=== PATIENT | female | born 1985 | race Caucasian/White ===

== ENCOUNTER 2016-08-08 07:20 | Emergency (ER) | payer BC ==
--- NOTE | 2016-08-08 07:27 | UC ---
Throat Pain/Nasal Emmett HPI - HPI Summary HPI Summary: 30 year old female presents with sore throat . Worsening over the last 4-5 days. No fever. Concerned for strep. 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 - History of Current Complaint Stated Complaint: THROAT Time Seen by Provider: 08/08/16 07:24 Hx Obtained From: Patient Hx Last Menstrual Period: 11/12/14 ?: No Onset/Duration: Sudden Onset Associated Signs & Symptoms: Positive: Negative - Allergies/Home Medications Allergies/Adverse Reactions: Allergies Allergy/AdvReac Type Severity Reaction Status Date / Time No Known Allergies Allergy Verified 08/08/16 07:52 PMH/Surg Hx/FS Hx/Imm Hx Previously Healthy: Yes - Surgical History Surgical History: None - Family History Known Family History: Positive: None - Social History Occupation: Employed Full-time Lives: With Family Alcohol Use: Occasionally Substance Use Type: None Smoking Status (MU): Heavy Every Day Tobacco Smoker Type: Cigarettes Amount Used/How Often: 1/2 PPD Length of Time of Smoking/Using Tobacco: 9 Years Have You Smoked in the Last Year: Yes Household Exposure Type: Cigarettes - Immunization History Most Recent Influenza Vaccination: Not the 2014/2015 Season Most Recent Tetanus Shot: Unknown Review of Systems ENT: Sore Throat All Other Systems Reviewed And Are Negative: Yes Physical Exam Triage Information Reviewed: Yes Appearance: Well-Appearing, No Pain Distress, Well-Nourished Vital Signs Reviewed: Yes Eye Exam: Normal ENT Exam: Normal ENT: Positive: Normal ENT inspection, Pharynx normal, Pharyngeal erythema, Nasal congestion, TMs normal. Negative: Tonsillar swelling, Tonsillar exudate Dental Exam: Normal Neck exam: Normal Neck: Positive: 1 Respiratory Exam: Normal Cardiovascular Exam: Normal Musculoskeletal Exam: Normal Neurological Exam: Normal Psychological Exam: Normal Skin Exam: Normal Throat Pain/Nasal Course/Dx - Differential Dx/Diagnosis Differential Diagnosis/HQI/PQRI: Peritonsillar Abscess, Pharyngitis, Tonsillitis , URI Provider Diagnoses: Viral Pharyngitis Discharge - Discharge Plan Condition: Good Disposition: HOME Patient Education Materials: Pharyngitis (ED) Referrals: Argelia Stanton MD [Primary Care Provider] - 3 Days Additional Instructions: You had a negative strep test in the office today. If your symptoms persist then please seek care from your PCP
[2016-08-08 08:01] VITALS: BP 127/88
== END 2016-08-08 09:00 | disposition home or self-care (01) ==
LOC: UCCORT 07:20
DX: J02.9 Acute pharyngitis, unspecified (principal); F17.210 Nicotine dependence, cigarettes, uncomplicated
CPT/HCPCS: 87651; 99211; G0463

== ENCOUNTER 2017-03-22 07:23 | Emergency (ER) | payer BC ==
[2017-03-22 07:40] VITALS: BP 119/82
--- NOTE | 2017-03-22 07:49 | UC ---
Throat Pain/Nasal Emmett HPI - HPI Summary HPI Summary: sore throat x 4 days nasal congestion , dry cough no fever, no chills, no body aches - History of Current Complaint Chief Complaint: UCRespiratory Stated Complaint: SORE THROAT COUGH RUNNY NOSE Time Seen by Provider: 03/22/17 07:44 Hx Obtained From: Patient Hx Last Menstrual Period: 11/12/14 Onset/Duration: Gradual Onset, Lasting Days - 4, Still Present Severity: Moderate Pain Intensity: 6 Cough: Nonproductive Associated Signs & Symptoms: Positive: Nasal Discharge. Negative: Dysphagia, FB Sensation, Drooling, Wheezing, Hoarseness, Sinus Discomfort, Fever, Vomiting , Rash - Allergies/Home Medications Allergies/Adverse Reactions: Allergies Allergy/AdvReac Type Severity Reaction Status Date / Time No Known Allergies Allergy Verified 03/22/17 07:34 Home Medications: Home Medications Cholecalciferol [Vitamin D] 200 unit PO DAILY 03/22/17 [History Confirmed ] Levothyroxine TAB* [Synthroid TAB*] 50 mcg PO DAILY 03/22/17 [History Confirmed 03/22/17] Vitamin Mixture [Vitamin C] 1 liq PO DAILY 03/22/17 [History Confirmed 03/22/17] PMH/Surg Hx/FS Hx/Imm Hx Previously Healthy: Yes Endocrine History: Hypothyroidism - Surgical History Surgical History: None - Family History Known Family History: Positive: None Negative: Diabetes - Social History Alcohol Use: None Substance Use Type: None Smoking Status (MU): Former Smoker Type: Cigarettes Amount Used/How Often: 1/2 PPD Length of Time of Smoking/Using Tobacco: 9 Years Have You Smoked in the Last Year: No When Did the Patient Quit Smoking/Using Tobacco: 2016 Household Exposure Type: Cigarettes - Immunization History Most Recent Influenza Vaccination: Not the 2014/2015 Season Most Recent Tetanus Shot: Unknown Review of Systems Constitutional: Negative Skin: Negative Eyes: Negative ENT: Sore Throat, Nasal Discharge Respiratory: Cough Cardiovascular: Negative Gastrointestinal: Negative Is Patient Immunocompromised?: No All Other Systems Reviewed And Are Negative: Yes Physical Exam Triage Information Reviewed: Yes Appearance: Well-Appearing, No Pain Distress, Well-Nourished Vital Signs: Initial Vital Signs Temp 99.1 F 03/22/17 07:35 Pulse 97 03/22/17 07:35 Resp 18 01/30/18 07:35 BP 119/82 03/22/17 07:35 Pulse Ox 100 03/22/17 07:35 Vital Signs Reviewed: Yes Eyes: Positive: Conjunctiva Clear ENT: Positive: Normal ENT inspection, Hearing grossly normal, Pharynx normal, Nasal congestion. Negative: Pharyngeal erythema Neck: Positive: Supple, Nontender, No Lymphadenopathy Respiratory: Positive: Chest non-tender, Lungs clear, Normal breath sounds Cardiovascular: Positive: RRR, No Murmur, Pulses Normal Abdominal Exam: Normal Skin Exam: Normal Throat Pain/Nasal Course/Dx - Differential Dx/Diagnosis Provider Diagnoses: viral pharyngitis Discharge - Discharge Plan Condition: Stable Disposition: HOME Patient Education Materials: Pharyngitis (ED) Referrals: Argelia Stanton MD [Primary Care Provider] - If Needed
== END 2017-03-22 07:52 | disposition home or self-care (01) ==
LOC: UCCORT 07:23
DX: J02.9 Acute pharyngitis, unspecified (principal); R09.81 Nasal congestion; E03.9 Hypothyroidism, unspecified; Z87.891 Personal history of nicotine dependence
CPT/HCPCS: 99211; G0463

== ENCOUNTER 2017-05-22 07:24 | Emergency (ER) | payer BC ==
--- OUTSIDE RECORDS SUMMARY | 2017-05-22 07:32 | XMS REPORT ---
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 Unavailable Payers Type Date Identification Numbers Payment Provider Subscriber Commercial Effective: Policy Number: BCBS Commercial Elodia Maldonado 2013 [id number] PayID: [id number] [address] [address] [place] [address] Problems Date Description Provider Status Onset: 10/21/2015 Mixed hyperlipidemia Argelia Stanton MD Active Onset: 02/08/2017 Hypothyroidism Argelia Stanton MD Active Family History Date Family Member(s) Problem(s) Comments Father Diabetes, Adult Father Hypertension Mother Good Health First Sister Hypothyroidism Half-sister with Mark's Social History Type Date Description Comments Education Higest level completed, Bachelor's In human services from [employer] Marital Status maiden name April Lives With Spouse Diet Healthy, Well Balanced 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 Hand Dominance RIGHT-handed Abuse No history of abuse Hobbies Gardening Blood Donor Patient is not a blood donor ETOH Use Occasionally consumes alcohol Smoking Patient is a former smoker Quit smoking 10/2015. Allergies, Adverse Reactions, Alerts Date Description Reaction Status Severity Comments 10/17/2015 NKDA active Medications Medication Date Status Form Strength Qnty SIG Indications Ordering Provider Levothyroxine 02/02/ Active Tablets 50mcg 90tabs 1 by Cierra Stanton mouth MD Argelia every day Vitamin D-3 02/01/ Active Capsules 1000Unit 90caps 2 by [place], 2017 mouth [place], every day DO / Active Tablets 14-0.4mg 1 by Unknown Complete 0000 mouth every day Sprintec 28 / Hx Tablets 0.25-35mg- 1 by Unknown 0000 - mcg mouth 02/01/ every day 2016 [facility] Immunizations CPT Code Status Date Vaccine Lot # [id number] Given 10/23/2002 Immunization Td 7 Yrs Or Older Vital Signs Date Vital Result Comment 04/28/2017 Weight 192.00 lb Heart Rate 76 /min BP Systolic 110 mmHg BP Diastolic 70 mmHg Respiratory Rate 18 /min Height 65 inches 5'5"04/28/17 BMI (Body Mass Index) 31.9 kg/m2 02/01/2017 Body Temperature 99.2 F Weight 170.00 lb Heart Rate 78 /min BP Systolic 124 mmHg BP Diastolic 70 mmHg Respiratory Rate 18 /min Height 65 inches 5'5" BMI (Body Mass Index) 28.3 kg/m2 10/17/2015 Weight 202.00 lb Heart Rate 74 /min BP Systolic 130 mmHg BP Diastolic 90 mmHg BP Systolic Recheck 130 mmHg BP Diastolic Recheck 80 mmHg Respiratory Rate 18 /min Height 65 inches 5'5" BMI (Body Mass Index) 33.6 kg/m2 05/20/2005 Body Temperature 97.9 F Weight 160.00 lb Heart Rate 88 /min BP Systolic 108 mmHg BP Diastolic 70 mmHg Respiratory Rate 20 /min 01/18/2005 Body Temperature 98.5 F Weight 156.00 lb Heart Rate 98 /min BP Systolic 118 mmHg BP Diastolic 70 mmHg Respiratory Rate 16 /min O2 % BldC Oximetry 97 % 07/02/2004 Body Temperature 98.3 F Weight 148.00 lb Heart Rate 72 /min BP Systolic 98 mmHg BP Diastolic 72 mmHg Respiratory Rate 16 /min O2 % BldC Oximetry 98 % Results Test Date Test Result H/L Range Note Laboratory test 03/16/2017 TSH 3.58 uIU/mL 0.35-4.94 finding Thyroid Auto 03/16/2017 Thyroid Peroxidase 242.00 IU/mL High 0.00-25.00 1 Antibodies Antibody Thyroglobulin AutoAB 97.00 IU/mL High 0.00-40.00 2 Laboratory test finding 03/16/2017 Acetaminophen <2.5 ug/mL Low (10.0- 30.0) 3 Free T4 0.96 ng/dL 0.70-1.48 Laboratory test finding 02/01/2017 TSH 8.89 uIU/mL High 0.35-4.94 4 Free T4 0.84 ng/dL 0.70-1.48 4 Thyroid Auto 02/01/2017 Thyroid Peroxidase 210.00 IU/mL High 0.00-25.00 4 , 5 Antibodies Antibody Thyroglobulin AutoAB 93.00 IU/mL High 0.00-40.00 4, 6 Laboratory test 02/01/2017 T3,Free 2.29 pg/mL 1.71-3.71 4 finding Laboratory test 01/28/2017 Thyroid Stim 9.12 uIU/mL High 0.30-4.20 7 finding Hormone Laboratory test 12/25/2016 Lead,Blood (Adult) <1 g/dL 0-19 8, 9 finding Varicella-Zoster Virus IgG Ab 835 index Immune >165 8, 10 Laboratory test finding 12/25/2016 Treponema Antibody White Negative Negative 8 Hepatitis B Surface Antigen Negative Negative 8, 11 Rubella IgG Antibody 7.91 index Immune >0.99 8, 12 Laboratory test 12/25/2016 HIV Screen 4TH Gen Non Reactive Non Reactive 8, 13 finding Reflex Type And Screen 12/25/2016 Patient Blood Type O POS 8 Antibody Screen Negative Negative 8 CBS W/Automated Diff 12/25/2016 White Blood Count 7.8 K/uL 3.1-10.7 8 Red Blood Count 3.93 M/uL 3.90-5.40 8 Hemoglobin 12.8 gm/dL 11.6-15.8 8 Hematocrit 36.7 % 36.0-46.1 8 Mean Cell Volume 93.4 fl 80.9-99.0 8 Mean Corpuscular HGB 32.6 pg 25.9-32.7 8 Mean Corpuscular HGB Conc 34.9 g/dL High 30.8-34.3 8 Platelet Count 248 K/uL 150-400 8 Red Cell Distri Width SD 39.8 fl 3-47 8 Red Cell Distri Width %CV 11.9 % 11.7-14.4 8 Mean Platelet Volume 10.0 fL 8.9-12.4 8 Neut% 64.0 % 40.4-72.8 8 Lymph % 24.5 % 20.0-42.0 8 [place] % 10.8 % 4.3-13.2 8 Eo% 0.6 % 0.0-6.6 8 Bas% 0.1 % 0.0-1.1 8 Neut# 4.99 K/uL 1.8-7.0 8 Lymph # 1.91 K/uL 1.0-4.0 8 [place] # 0.84 K/uL 0.3-0.9 8 Eos # 0.05 K/uL 0.0-0.5 8 Baso # 0.01 K/uL 0.0-0.1 8 Urine Culture 12/25/2016 Urine Culture URETHRAL ADRIAN 8 Quantity 10,000 - 50,000 <SEE NOTE> 8, 14 Drugs Of Abuse-Urine Screen 7 12/25/2016 Amphetamines (Urine) Negative 8 Barbiturates (Urine) Negative 8 Benzodiazepines (Urine) Negative 8 Cannabinoids (Urine) POSITIVE 8 Cocaine Metabolite (Urine) Negative 8 Methadone (Urine) Negative 8 Opiates (Urine) Negative 8 Urine Cutoffs * 8, 15 Ua RFX Micro & Culture II 12/25/2016 Urine Color YELLOW Yellow 8 Urine Clarity CLEAR Clear 8 Urine Glucose - Dipstick NEGATIVE mg/dL Negative 8 Urine Bilirubin - Dipstick NEGATIVE Negative 8 Urine Ketone NEGATIVE mg/dL Negative 8 Urine Specific [place] 1.010 1.010-1.030 8 Urine Blood NEGATIVE Negative 8 Urine PH 6.5 6.5-7.5 8 Urine Protein - Dipstick NEGATIVE mg/dL Negative 8 Urine Urobilinogen - Dipstick 0.2 E.U./dL 0.2-1.0 8 Urine Nitrite - Dipstick NEGATIVE Negative 8 Urine Leuk Esterase NEGATIVE Negative 8 Source: URINE, CLEAN CAT <SEE NOTE> 8, 16 Comprehensive Metabolic (CMP) 10/20/2015 Sodium 137 mmol/L 134-142 17 Potassium 4.6 mmol/L 3.5-5.2 17 Chloride 101 mmol/L 97-109 17 Carbon Dioxide 26 mmol/L 24-34 17 Glucose 82 mg/dL 70-105 17 BUN 12 mg/dL 6-26 17 Creatinine 0.7 mg/dL 0.5-1.4 17 Calcium 9.4 mg/dL 8.5-10.2 17 Total Protein 7.2 g/dL 6.0-8.0 17 Albumin 4.0 g/dL 3.6-4.9 17 Globulin 3.2 g/dL 2.0-3.5 17 A/G Ratio 1.3 Ratio 1.0-2.2 17 Total Bilirubin 0.4 mg/dL 0.1-1.3 17 Alkaline Phosphatase 91 U/L 24-140 17 Alt 14 U/L 3-42 17 Ast 15 U/L 8-42 17 Anion Gap 15 mmol/L High 6-14 17 Carol Egfr >60 >60 17, 18 Non Carol Egfr >60 >60 17, 19 CBC With Auto Diff 10/20/2015 WBC 6.0 K/uL 4.1-11.0 17 RBC 4.42 M/uL 4.00-5.40 17 Hemoglobin 13.9 gm/dL 12.0-16.0 17 Hematocrit 41.0 % 36.0-47.0 17 MCV 92.8 fL 80.0-97.0 17 MCH 31.5 pg 27.0-32.0 17 MCHC 34.0 g/dL 32.0-36.0 17 RDW 13.0 % 11.5-14.5 17 PLT Count 284 K/ul 140-400 17 Neutrophil 60.3 % 35.0-75.0 17 Lymphocyte 29.0 % 16.0-52.0 17 Monocyte 8.0 % 2.0-10.0 17 Eosinophil 2.0 % 0.0-5.0 17 Basophil 0.7 % 0.0-4.0 17 Abs Neutrophils 3.6 K/uL 2.1-8.0 17 Abs Lymphocytes 1.8 K/uL 0.8-5.5 17 Abs Monocytes 0.5 K/uL 0.1-1.0 17 Abs Eosinophils 0.1 K/uL 0.0-0.5 17 Abs Basophils 0.0 K/uL 0.0-0.3 17 Lipid 10/20/2015 Cholesterol 279 mg/dL High 50-199 17 Triglycerides 272 mg/dL High 30-200 17 HDL 50 mg/dL 35-85 17, 20 Chol/ HDL Ratio 5.6 ratio 3.7-5.6 17 VLDL 54 mg/dL High 2-29 17 LDL (Calc) 175 mg/dL High 20-99 17, 21 Laboratory test finding 10/20/2015 TSH 4.38 uIU/mL 0.35-4.94 17 Laboratory test finding 05/20/2005 Culture Throat Normal Throat FL 22 <See Note> Monoscreen (Heterophile) Negative Negative 1 Interpretation: 0-25 Negative 26-35 Equivocal >35 Positive 2 Interpretation: 0-40 Negative 41-60 Equivocal >60 Positive 3 Unless otherwise specified, testing performed by [facility] [address] [place] [id number] 4 Fastin hours 5 Interpretation: 0-25 Negative 26-35 Equivocal >35 Positive 6 Interpretation: 0-40 Negative 41-60 Equivocal >60 Positive 7 Z34.81 8 Z34.01 9 Environmental Exposure: WHO Recommendation <20 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 Performed at: [address] [id number] Industry Segment Specialist: Alicja Kaur MD, Phone: [phone] 11 Performed at: [address] [id number] Industry Segment Specialist: Alicja Kaur MD, Phone: [phone] Performed at: [address] [id number] Industry Segment Specialist: Glenn Canseco MD, Phone: [phone] 12 Non-immune <0.90 Equivocal 0.90 - 0.99 Immune >0.99 13 Performed at: [address] [id number] Industry Segment Specialist: Alicja Kaur MD, Phone: [phone] 14 10,000 - 50,000 CFU/mL 15 URINE SPECIMENS ARE SCREENED AT THE LISTED [facility]OFFS DRUG CLASS INITIAL TEST LEVEL Amphetamines 1000 ng/mL Barbiturates 200 ng/mL Benzodiazepines 200 ng/mL Cannabinoids 50 ng/mL Cocaine Metabolite 300 ng/mL Methadone 300 ng/mL Opiates 300 ng/mL Any PRESUMPTIVE POSITIVE findings are UNCONFIRMED. Confirmatory testing is suggested if findings are unexpected. Please contact laboratory if confirmatory testing is desired. SPECIMENS ARE HELD FOR 72 HOURS. 16 URINE, CLEAN CATCH 17 soon 18 Concerning GFR Guidelines for Americans: Normal function or mild renal disease, if clinically at risk: >/=60 mL/min Moderately decreased: 30-59 Severely decreased: 15-29 Renal failure: <15 19 Concerning GFR Guidelines: Normal function or mild renal disease, if clinically at risk: >/=60 mL/min Moderately decreased: 30-59 Severely decreased: 15-29 Renal failure: <15 Glomerular Filtration Rate (GFR) is estimated based on the MDRD equation, which assumes a steady state for creatinine as recommended by the National Kidney Disease Education Program in conjunction with the National Institutes of Health and the National Kidney Foundation. Clinical conditions in which it may be necessary to measure GFR by using clearance methods include extremes of age and body size, severe malnutrition or obesity, diseases of skeletal muscle, paraplegia or quadriplegia, vegetarian diet, rapidly changing kidney function, and calculation of the dose of potentially toxic drugs that are excreted by the kidneys. 20 Per NCEP ATP III Guidelines: Results lower than 40 mg/dL are suggestive of increased risk for coronary artery disease. Results > or=to 60 mg/dL are considered a negative risk factor. 21 Per NCEP ATP III Guidelines: Normal Population <130 Patients with medical conditions: CHD/DM Optimal: <100 Borderline high: 130-159 High: 160-189 Very high: >189 22 NORMAL THROAT ADRIAN Procedures Date CPT Code Description Status 10/23/2002 12816 Visual Screening Test Completed 10/23/2002 60627 Screening Hearing Test Completed Encounters Type Date Location Provider CPT E/M Dx Office Visit 02/01/2017 8:30a [facility] [place] [address] E03.9 Z34.00 Office Visit 10/17/2015 11:00a [facility] [place] [address] Z00.00 Z72.0 Plan of Care Future Appointment(s):10/25/2017 2:30 pm - Schedule, Laboratory at [facility]2017 3:00 pm - Argelia Stanton MD at [facility]04/28/2017 - Argelia Stanton MDE03.9 Hypothyroidism, unspecifiedNew Labs:TSHComments:explained thyroid disease - she has positive thyroid antibodies. recommend she have TSH checked every 1-2 months during pregancy - Dr Ortiz has already ordered bloodwork so I will not duplicate this. Cautioned that after delivery, she may need a higher dose. Please call if you would like labs drawn.Follow up:6 mo follow-up with labs prior
--- OUTSIDE RECORDS SUMMARY | 2017-05-22 07:33 | XMS REPORT ---
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 Payers Type Date Identification Numbers Payment Provider Subscriber Commercial Effective: Policy Number: BCBS Commercial Elodia Maldonado 2013 [id number] PayID: [id number] [address] [address] [place] [address] Problems Date Description Provider Status Onset: 10/21/2015 Mixed hyperlipidemia Argelia Stanton MD Active Onset: 02/08/2017 Hypothyroidism Argelia Stanton MD Active Family History Date Family Member(s) Problem(s) Comments Father Diabetes, Adult Father Hypertension Mother Good Health First Sister Hypothyroidism Half-sister with Mark's Social History Type Date Description Comments Education Higest level completed, Bachelor's In human services from [employer] Marital Status maiden name April Lives With Spouse Diet Healthy, Well Balanced 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 Hand Dominance RIGHT-handed Abuse No history of [...] - mcg mouth 02/01/ every day 2016 [facility] Immunizations CPT Code Status Date Vaccine Lot # [id number] Given 10/23/2002 Immunization Td 7 Yrs Or [...] 10 Laboratory test finding 12/25/2016 Treponema Antibody [place] Negative Negative 8 Hepatitis B Surface Antigen [...] 8 Lymph % 24.5 % 20.0-42.0 8 [place] % 10.8 % 4.3-13.2 8 Eo% 0.6 % 0.0-6.6 8 Bas% 0.1 % 0.0-1.1 8 Neut# 4.99 K/uL 1.8-7.0 8 Lymph # 1.91 K/uL 1.0-4.0 8 [place] # 0.84 K/uL 0.3-0.9 8 Eos # [...] Ketone NEGATIVE mg/dL Negative 8 Urine Specific [place] 1.010 1.010-1.030 8 Urine Blood NEGATIVE Negative [...] Unless otherwise specified, testing performed by [facility] [address] [place] [id number] 4 Fastin hours 5 Interpretation: 0-25 Negative [...] infection or stage of disease. Performed at: [address] [id number] Online Media Director: Alicja Kaur MD, Phone: [phone] 11 Performed at: [address] [id number] Online Media Director: Alicja Kaur MD, Phone: [phone] Performed at: [address] [id number] Online Media Director: Glenn Canseco MD, Phone: [phone] 12 Non-immune <0.90 Equivocal 0.90 - 0.99 Immune >0.99 13 Performed at: [address] [id number] Online Media Director: Alicja Kaur MD, Phone: [phone] 14 10,000 - 50,000 CFU/mL 15 URINE [...] Procedures Date CPT Code Description Status 10/23/2002 17496 Visual Screening Test Completed 10/23/2002 62255 Screening Hearing Test Completed Encounters Type Date Location Provider CPT E/M Dx Office Visit 02/01/2017 8:30a [place] [address] E03.9 Z34.00 Office Visit 10/17/2015 11:00a [place] [address] Z00.00 Z72.0 Plan of Care 04/28/2017 - Argelia Stanton MDE03.9 Hypothyroidism, unspecifiedNew Labs: TSHComments:explained thyroid disease - she has positive thyroid antibodies. recommend she have TSH checked every 1-2 months during pregancy - Dr Ortiz has already ordered bloodwork so I will not duplicate this. Cautioned that after delivery, she may need a higher dose. Please call if you would like labs drawn.Follow up:6 mo follow-up with labs prior
[2017-05-22 07:39] VITALS: BP 112/65
--- NOTE | 2017-05-22 07:52 | UC ---
Throat Pain/Nasal Emmett HPI - HPI Summary HPI Summary: Pt with sore throat, cough x 1 month - not productive. Pt with mild nasal congestion No ear pain, sinus pain. + PND. no fever, chills, rash. Pt is with EDC August - states hasn't taken anything because and assumed viral. 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 pt heats house with wood burning stove, not humidified + active baby movement Pt's medications reviewed this visit - History of Current Complaint Chief Complaint: UCRespiratory Stated Complaint: SORE THROAT, COUGH Time Seen by Provider: 05/22/17 07:30 Hx Obtained From: Patient Hx Last Menstrual Period: 10/2016 ?: Yes Onset/Duration: Gradual Onset, Lasting Weeks Severity: Mild Pain Intensity: 3 Pain Scale Used: 0-10 Numeric Cough: Nonproductive Associated Signs & Symptoms: Positive: Other - sore throat - Allergies/Home Medications Allergies/Adverse Reactions: Allergies Allergy/AdvReac Type Severity Reaction Status Date / Time No Known Allergies Allergy Verified 05/22/17 07:32 Home Medications: Home Medications Cholecalciferol TAB* [Vitamin D TAB*] 200 unit PO DAILY 05/22/17 [History Confirmed 05/22/17] Vit Calc,Iron,Folic [ Vitamins] 1 each PO DAILY 05/22/17 [ History Confirmed 05/22/17] PMH/Surg Hx/FS Hx/Imm Hx Previously Healthy: Yes - Surgical History Surgical History: None - Family History Known Family History: Positive: None Negative: Diabetes - Social History Occupation: Employed Full-time Lives: With Family Alcohol Use: None Substance Use Type: None Smoking Status (MU): Former Smoker Type: Cigarettes Amount Used/How Often: 1/2 PPD Length of Time of Smoking/Using Tobacco: 9 Years Have You Smoked in the Last Year: No When Did the Patient Quit Smoking/Using Tobacco: 2016 Household Exposure Type: Cigarettes - Immunization History Most Recent Influenza Vaccination: Not the 2014/2015 Season Most Recent Tetanus Shot: Unknown Review of Systems Constitutional: Negative Eyes: Drainage ENT: Nasal Discharge Respiratory: Cough All Other Systems Reviewed And Are Negative: Yes Physical Exam Triage Information Reviewed: Yes Appearance: Well-Appearing, No Pain Distress, Well-Nourished Vital Signs: Initial Vital Signs Temp 97.7 F 05/22/17 07:35 Pulse 94 05/22/17 07:35 Resp 18 05/22/17 07:35 BP 112/65 05/22/17 07:35 Pulse Ox 100 05/22/17 07:35 Vital Signs Reviewed: Yes Eyes: Positive: Other: - right eye injected + dry yellow crust drainage right lid ZAID, EOM intact no photophobia ENT: Positive: Pharynx normal, Nasal congestion, Uvula midline, Other - turbinates mildly inflammed +PND no erythema, exudate Neck exam: Normal Neck: Positive: Supple Respiratory Exam: Normal Respiratory: Positive: Chest non-tender, Lungs clear, Normal breath sounds, No respiratory distress, No accessory muscle use Cardiovascular Exam: Normal Cardiovascular: Positive: RRR, No Murmur, Pulses Normal Abdominal Exam: Normal Abdomen Description: Positive: Nontender, No Organomegaly, Soft Bowel Sounds: Positive: Present Musculoskeletal Exam: Normal Neurological Exam: Normal Neurological: Positive: Alert Psychological Exam: Normal Skin Exam: Normal Throat Pain/Nasal Course/Dx - Course Course Of Treatment: Pt with 1 month sore throat and mild, non-productive cough. pt without other sx. One exam right eye conjunctivitis - Rx e-mycin. recommend humidify, saline spray and claritin. If sx persist, flonase and amox. pt comfortable and in agreement [facility] plan. secretion precaution. return precautions - Differential Dx/Diagnosis Provider Diagnoses: conjunctivitis. rhinitis Discharge - Sign-Out/Discharge Documenting (check all that apply): Discharge - Discharge Plan Condition: Stable Disposition: HOME Prescriptions: Amoxicillin PO (*) [Amoxicillin 875 MG (*)] 875 mg PO BID #20 tab Erythromycin OPTH OINT* [Erythromycin 0.5% OPTH OINT*] 1 applic RIGHT EYE TID # 1 ophth.oint Fluticasone NASAL SPRAY 50MCG* [Flonase NASAL SPRAY 50MCG*] 2 spray BOTH NARES DAILY #1 btl Patient Education Materials: Upper Respiratory Infection (ED), Allergic Rhinitis (ED), Conjunctivitis (ED) Referrals: Argelia Stanton MD [Primary Care Provider] - Additional Instructions: The doctor that evaluated you today thinks your congestion and cough is related to dryness and post-nasal drip. Recommendations are as follows: - Humidify the air in the room where you sleep - boil water, run a hot steam shower, vaporizer, cups of water by heat register - Okay to take Tylenol every 6 hours for pain - It is recommeded you use an over the counter saline nasal spray - It is recommended you take an antihistamine (claritin, zytrec) - okay to check with your OB before initiating care If your symptoms persist, you may start the nasal steroid spray (floanse) as prescribed You have also been given a prescription for antibiotics (amoxicillin) - okay to take for fevers, ongoing symptoms, other concerns - Apply eye drops as prescribed to your eye for infection - warm, wet cloths are recommended to help with secretion and stickiness on your eye lid - This is very contagious - wash your hands thoroughly before and after applying drop - try not to rub your eye Contact your doctor or return with questions or concerns - Billing Disposition and Condition Condition: STABLE Disposition: HOME
== END 2017-05-22 08:32 | disposition home or self-care (01) ==
LOC: UCCORT 07:24
DX: H10.9 Unspecified conjunctivitis (principal); J31.0 Chronic rhinitis; Z87.891 Personal history of nicotine dependence
CPT/HCPCS: 87651; 99212; G0463

== ENCOUNTER 2017-12-17 09:03 | Emergency (ER) | payer BC ==
--- OUTSIDE RECORDS SUMMARY | 2017-12-17 09:31 | XMS REPORT | Continuity of Care Document ---
:1985 External Reference #:[id number] Author Name Shanthi Joseph NP Address [address] [place] [address] Care Team Providers Name Role Phone Argelia Stanton MD Primary Care Physician Unavailable Payers Type Date Identification Numbers Payment Provider Subscriber Policy Number: [id number] Rebeca Maldonado Group Number: [id number] [address] [address] Group Name: [facility] [place] [address] PayID: [id number] Effective: 2017 Policy Number: [id number] Medicaid Pe (JC) Elodia Maldonado Expires: 2018 PayID: [id number] [address] [place] [address] Advance Directives Description No Information Available Problems Date Description Provider Status Onset: 09/03/2014 Obesity Elisabeth Wright NP Active Family History Date Family Member(s) Problem(s) Comments General Colon Cancer MGF Father Alive has Sickle Cell Anemia Trait Father Diabetes Father Hypertension Father Hypercholesterolemia Father Hypothyroidism Mother Alive Mother No Current Problems Siblings 3 1 brother 1 half brother 1 half sister Social History Type Date Description Comments Sex Female Education Highest level completed, Bachelor's Degree Marital Status Legal Status: Work Status Full-Time Employment Tobacco Use Reviewed: 12/06/17 Never Smoked Cigars Tobacco Use Reviewed: 12/06/17 Never Smoked A Pipe Smoking Status Reviewed: 12/06/17 Never Smoked A Pipe Tobacco Use Reviewed: 12/06/17 Never Used Smokeless Tobacco ETOH Use Occasionally consumes alcohol Recreational Drug Use Denies Drug Use Tobacco Use Start: Unknown End: Patient is a former smoker Unknown Recreational Drug Use Aware of Availability of Narcan Training. Recreational Drug Use Teaching Provided Regarding Naloxone/Narcan Training Available AT [facility] Tattoo/Piercing Negative For Tattoo Sun Exposure Uses sunscreen sometimes Contraceptive Methods Current methods include oral contraceptives Age 1st [place] 17 Years Old STD's No STD History UNKNOWN 12/06/2017 Never E-Cigarette user Allergies, Adverse Reactions, Alerts Description No Known Drug Allergies Medications Medication Date Status Form Strength Qnty SIG Indications Ordering Provider Vitamin Active Unknown Sprintec 28 Active Unknown Levothyroxine Active Unknown Sodium Multi Vitamin Active Unknown Multi Vitamin Daily Hx Unknown - 10/05/2016 Immunizations Description No Information Available Vital Signs Date Vital Result Comment 12/06/2017 4:31pm BP Systolic 127 mmHg electronic BP Diastolic 93 mmHg electronic BP Systolic Recheck 118 mmHg manual BP Diastolic Recheck 82 mmHg manual Height 65.5 inches 5'5.50" Weight 208.00 lb BMI (Body Mass Index) 34.1 kg/m2 10/05/2016 9:03am BP Systolic 120 mmHg BP Diastolic 80 mmHg Height 65.5 inches 5'5.50" Weight 170.00 lb BMI (Body Mass Index) 27.9 kg/m2 09/09/2015 9:13am BP Systolic 106 mmHg BP Diastolic 66 mmHg Height 65.5 inches 5'5.50" Weight 201.00 lb BMI (Body Mass Index) 32.9 kg/m2 09/03/2014 8:38am BP Systolic 120 mmHg BP Diastolic 80 mmHg Height 65.5 inches 5'5.50" Weight 205.00 lb BMI (Body Mass Index) 33.6 kg/m2 Last Menstrual Period [id number] Results Test Date Facility Test Result H/L Range Note Thinprep Pap [employer] 10/05/2016 [facility] Results ASCUS/ HPV 1 W/RFX HPV HR negae Laboratory test 10/05/2016 [facility] Test neg finding Urine..... Thinprep Pap [employer] 09/09/2015 [facility] Results Neg/ no etz 2 W/RFX HPV Mrna E6/E7 Ravi Annual Lab 09/09/2015 [facility] HGB Blood.... 11.9 Set Urinalysis DIP 09/09/2015 [facility] Urine Protein N Only.... Random Urine Glucose QN Random N Laboratory test finding 09/09/2015 [facility] Test Urine..... neg Wet Prep.... 09/03/2014 [facility] WBC Smear neg Clue Cells Vag Fluid Wet Prep neg Tawana Wet Prep neg Lactobacillus Wet Prep + Whiff Wet Prep neg Bacteria Wet Prep neg PH Wet Prep 4.5 Misc Other Test n/a Ravi Annual Lab Set 09/03/2014 [facility] HGB Blood.... 11.9 Urinalysis DIP Only.... 09/03/2014 [facility] Urine Protein Random N Urine Glucose QN Random N 1 GYNECOLOGICAL CYTOLOGY REPORT Thinprep TIS PAP w/rfx to HPV E6/E7 REPORT STATUS: FINAL CLINICAL INFORMATION: Information not provided SLIDES / SOURCE: 1 / Information not provided STATEMENT OF ADEQUACY: Satisfactory for evaluation. Endocervical/transformation zone component present. GENERAL CATEGORIZATION: EPITHELIAL CELL ABNORMALITY INTERPRETATION/RESULT: Atypical Squamous Cells of Undetermined Significance (ASC-US) COMMENT: This Pap test has been evaluated with computer assisted technology. TRANSITION COACH: MARIIA KLINE(ASC) For informational Purposes: All cytology specimens are processed and screened at [facility]. [address] [place] [id number] PATHOLOGIST: Hnuter Carvalho MD Board Certified in Anatomic and Clinical Pathology (electronic signature) For questions regarding this report call Anatomic Pathology at [phone] HPV mRNA E6/E7 HPV mRNA E6E7 Not Detected REFERENCE RANGE: NOT DETECTED This test was performed using the APTIMA HPV Assay ([employer] This assay detects E6/E7 viral messenger RNA (mRNA) from 14 high-risk HPV types (16,18,31,33,35,39,45,51,52,56,58,59,66,68). 2 GYNECOLOGICAL CYTOLOGY REPORT Thinprep TIS PAP w/rfx to HPV E6/E7 REPORT STATUS: FINAL CLINICAL INFORMATION: Information not provided SLIDES / SOURCE: 1 / Information not provided STATEMENT OF ADEQUACY: Satisfactory for evaluation. Endocervical/transformation zone component absent. INTERPRETATION/RESULT: Negative for intraepithelial lesion or malignancy. COMMENT: This Pap test has been evaluated with computer assisted technology. TRANSITION COACH: MARIIA AVILA(ASCP) For informational Purposes: All cytology specimens are processed and screened at [facility]. [address] [place] [id number] Procedures Description No Information Available Encounters Description No Information Available Plan of Treatment 12/06/2017 - hSanthi Joseph, [id number] Encounter for gynecological examination ( general) (routine)Comments:Reviewed healthy diet, exercise and safety with patient who states understanding.Counseled on Preventive , STI Awareness, Seat Belt Use, and Self Breast ExamFollow up:F/u in one year for annual. Sooner prn any concerns.Z30.41 Encounter for surveillance of contraceptive pillsComments:Patient to continue on ocp . Reviewed use of, side effects and precautions with patient who states understanding. She plans to get refills from Dr. Zelaya. Advised her that this office could also provide rx if she would like.Z12.4 Encounter for screening for malignant neoplasm of cervix
[2017-12-17 09:36] VITALS: BP 153/89
--- NOTE | 2017-12-17 09:49 | UC ---
Eye Complaint HPI - HPI Summary HPI Summary: Patient with head cold and sore throat 4 days. 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 Patient states she woke up this morning with her right eye crusted). Patient with thick yellow secretions. Patient is washcloth to soften open her eye. Patient's eye is red. Patient has any vision changes. Patient does not wear contact lenses. Patient denies a foreign body sensation. Patient without ear pain. Patient's nose is congested. Patient able to eat and drink without difficulty. No fevers or chills. Patient is intermittently taken over the counter DayQuil/NyQuil. Nothing today. Patient states had a baby 4 months ago. Patient is not breast-feeding. Patient's medications reviewed this visit - History of Current Complaint Chief Complaint: UCGeneralIllness Stated Complaint: RT EYE COMPLAINT,ST Time Seen by Provider: 12/17/17 09:34 Hx Obtained From: Patient Hx Last Menstrual Period: 12/11/17 ?: No Onset/Duration: Gradual Onset Timing: Constant Pain Intensity: 6 - Allergies/Home Medications Allergies/Adverse Reactions: Allergies Allergy/AdvReac Type Severity Reaction Status Date / Time No Known Allergies Allergy Verified 12/17/17 09:30 Home Medications: Home Medications Norgestimate-Ethinyl Estradiol [Sprintec 28 0.25-35 mg-Mcg] 1 tab PO DAILY 12/17 [History Confirmed 12/17/17] PMH/Surg Hx/FS Hx/Imm Hx Previously Healthy: Yes - Surgical History Surgical History: Yes Surgery Procedure, Year, and Place: 10/27/17 - Family History Known Family History: Positive: Other - noncontributory Negative: Diabetes - Social History Occupation: Employed Full-time Lives: With Family Alcohol Use: Rare Substance Use Type: None Smoking Status (MU): Former Smoker Type: Cigarettes Amount Used/How Often: 1/2 PPD Length of Time of Smoking/Using Tobacco: 9 Years Have You Smoked in the Last Year: No When Did the Patient Quit Smoking/Using Tobacco: 2015 Household Exposure Type: Cigarettes - Immunization History Most Recent Influenza Vaccination: Not the 2015/2015 Season Most Recent Tetanus Shot: Unknown Review of Systems Constitutional: Negative Skin: Negative Eyes: Drainage ENT: Ear Ache, Nasal Discharge, Sinus Congestion Respiratory: Negative All Other Systems Reviewed And Are Negative: Yes Physical Exam - Summary Physical Exam Summary: Vital Signs Reviewed: Yes A+Ox3, no distress Eyes: ZAID. EOM intact and full, right eye injected, thick yellow crusty secretions on lids no photophobia wearing glasses visual acuity reviewed ENT: Hearing grossly normal TM x 2 clear, turbinates inflammed and boggy, + PNDmmoist, uvula midline, no exudate, no erythema Neck: Positive: Supple Respiratory: Positive: No respiratory distress, No accessory muscle use + CTA throughout no w/r Cardiovascular: RRR nl s1, s2 no m/r CBT <2 sec abd soft + BS nt/nd no guarding, no distension Musculoskeletal Exam: BRASWELL x 4 without difficulty Strength Intact, ROM Intact Neurological: Positive: Alert, + sensation throughout Psychological: Positive: Normal Response To Family Skin: Positive: no rash, no ecchymosis Triage Information Reviewed: Yes Vital Signs: Initial Vital Signs Temp 98.5 F 12/17/17 09:29 Pulse 77 12/17/17 09:29 Resp 14 12/17/17 09:29 BP 153/89 12/17/17 09:29 Pulse Ox 100 12/17/17 09:29 Eye Complaint Course/Dx - Course Course Of Treatment: Patient presents to urgent care with report of right eye discharge and crust since tis am. pt states has had sore throat and sinus congestion x 1 week. 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 Pt with injected right eye with yellow drainage. Pt with sinus congestion, PND and erythema. will check for strep. If neg - supportive care, humidigy air. Pt not breast feeding. pt comfortable and in agreement with plan. Pt's BP elevated- caution with decongestants, PCP f/u - Differential Dx/Diagnosis Provider Diagnoses: conjunctivitis. URI Discharge - Sign-Out/Discharge Documenting (check all that apply): Patient Departure All imaging exams completed and their final reports reviewed: No Studies - Discharge Plan Condition: Stable Disposition: HOME Prescriptions: Polymyx/Trimethoprim OPTH* [Polytrim OPHTH*] 2 drop BOTH EYES Q6HR #1 btl Patient Education Materials: Upper Respiratory Infection (ED), Conjunctivitis ( ED) Referrals: Argelia Stanton MD [Primary Care Provider] - Additional Instructions: - Use eye ointment every 6 hours for 5 days - apply warm, moist cloth to your eye as needed for secretions - Okay to take decongestant (Claritin-D, Sudafed, Dayquil) for congestion - These infections are spread by secretions - do NOT share eating or drinking utensils - clean items you share with other people such as cell phones, computer mouse, TV remote,= computer tablets,etc. Once you have used eye drops for 2 days, change your pillowcase. - stay well hydrated. Drink plenty of non-alcoholic, non-caffinated beverages - cold foods may be soothing to your throat - contact your doctor or return with questions or concerns - Billing Disposition and Condition Condition: STABLE Disposition: Home
== END 2017-12-17 10:06 | disposition home or self-care (01) ==
LOC: UCCORT 09:03
DX: H10.9 Unspecified conjunctivitis (principal); J06.9 Acute upper respiratory infection, unspecified; Z87.891 Personal history of nicotine dependence
CPT/HCPCS: 87651; 99212; G0463